=== PATIENT | female | born 1970 | race Caucasian/White ===

== ENCOUNTER 2021-03-23 07:11 | Emergency (ER) | payer MEDICAID ==
--- NOTE | 2021-03-23 08:03 | EDM.PDOC ---
ED HPI GENERAL MEDICAL PROBLEM - General Chief Complaint: ENT Problem Stated Complaint: HEAD COLD Time Seen by Provider: 03/23/21 07:50 Source of Information: Reports: Patient History Limitations: Reports: No Limitations - History of Present Illness INITIAL COMMENTS - FREE TEXT/NARRATIVE: 50-year-old female with 3 days of very intense nasal congestion, sinus pressure and pressure in her ears. This tends to be a chronic recurring problem for her, and its been worse since the air has been so smoky. Her lungs are fine. She also feels she is run fevers over the past couple of days, mild chills. Lots of postnasal drainage. No nausea or vomiting. She has cleared with antibiotics and steroids in the past. She is a non-smoker. Onset: Gradual Duration: Day(s): (3 days of symptoms) Location: Reports: Head (Sinusitis, nasal congestion) Associated Symptoms: Reports: Fever/Chills, Headaches, Malaise. 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 Denies: Fever, Chills HEENT: Reports: Hearing Loss (Feels like her ears are plugged bilaterally), Rhinitis, Sinus Problem (Intense pressure, congestion) Respiratory: Denies: Shortness of Breath, Cough Cardiovascular: Denies: Chest Pain, Palpitations GI/Abdominal: Denies: Abdominal Pain, Nausea, Vomiting Skin: Reports: No Symptoms. Denies: Rash Neurological: Reports: Headache Psychiatric: Reports: No Symptoms ED EXAM, ENT - Physical Exam Exam: See Below Exam Limited By: No Limitations General Appearance: Alert, No Apparent Distress (Looks uncomfortable but not distressed) Eye Exam: Bilateral Eye: Normal Inspection Ears: Other (Right tympanic membrane is normal, the left is difficult to see due to significant cerumen) Nose: Clear Rhinorrhea, Injected Turbinates, Other (Swollen turbinates bilaterally) Mouth/Throat: Normal Inspection Head: Atraumatic Respiratory/Chest: No Respiratory Distress, Lungs Clear Neurological: Alert, Oriented Psychiatric: Normal Affect, Normal Mood Skin: Warm, Dry Course - Vital Signs Last Recorded V/S: Last Vital Signs Temp 98.1 F 03/23/21 07:34 Pulse 97 03/23/21 07:34 Resp 16 03/23/21 07:34 BP 142/78 H 03/23/21 07:34 Pulse Ox 97 03/23/21 07:34 - Orders/Labs/Meds Labs: Laboratory Tests 03/23/21 Range/Units 08:17 SARS CoV-2 RNA Rapid AUDRA Positive H - Re-Assessments/Exams Free Text/Narrative Re-Assessment/Exam: 03/23/21 08:03 She has not have her Covid vaccinations yet so a rapid Covid was obtained, if this is negative she will be placed on a course of oral steroids along with Zithromax. Result is pending. 03/23/21 08:33 Patient was placed on 60 mg of prednisone daily for 5 consecutive days, and a course of Zithromax. I advised her to consider some daily Flonase or maintenance steroid spray to avoid recurrent symptoms. 03/23/21 08:40 Covid was positive so the patient is going to quarantine but also take the medication. Departure - Departure Time of Disposition: 08:50 Disposition: Home, Self-Care 01 Clinical Impression: COVID-19 Sinusitis Qualifiers: Sinusitis location: sphenoidal Chronicity: acute Recurrence: recurrent Qualified Code(s): J01.31 - Acute recurrent sphenoidal sinusitis Rhinitis Qualifiers: Rhinitis type: vasomotor Qualified Code(s): J30.0 - Vasomotor rhinitis - Discharge Information Instructions: Sinusitis, Adult, [id number] Referrals: Sonia Townsend PA [Primary Care Provider] - Forms: ED Department Discharge Care Plan Goals: Take 6 pills of prednisone with food for 5 consecutive days, and consider a daily nasal steroid spray for maintenance to avoid rebound symptoms. Also take the antibiotic as prescribed. Recheck with your primary provider next week if not improving satisfactorily. You should quarantine for the next 10 days. Sepsis Event Note (ED) - Evaluation Sepsis Screening Result: No Definite Risk - Focused Exam Vital Signs: Vital Signs Temp Pulse Resp BP Pulse Ox 03/23/21 07:34 98.1 F 97 16 142/78 H 97 03/23/21 07:28 98.1 F 97 16 142/78 H 97
== END 2021-03-23 08:50 | disposition home or self-care (01) ==
LOC: JP.ED 07:11
DX: U07.1 COVID-19 (principal); J01.31 Acute recurrent sphenoidal sinusitis; J30.0 Vasomotor rhinitis; Z88.2 Allergy status to sulfonamides; Z91.048 Other nonmedicinal substance allergy status
CPT/HCPCS: 99283; U0002